=== PATIENT | female | born 1980 | race Two or more races ===

== ENCOUNTER 2018-12-25 14:08 | Emergency (ER) | payer OTHER ==
[~2018-12-25] VITALS: Ht 172.7 cm; Wt 68.0 kg
--- NOTE | 2018-12-25 14:16 | NUR ---
CAME IN FOR SEVERE ABD PAIN, +N/V SINCE THIS MORNING, PER PT BUT NOT SURE HOW FAR A LONG IS SHE. TO ER BED 16, HOOKED TO MONITOR, CHANGED TO GOWN, AWAITING MD PAGAN.
--- NOTE | 2018-12-25 14:20 | NUR ---
LIDA MAR AT BEDSIDE
[2018-12-25] MEDS ORDERED: METOCLOPRAMIDE HCL 10 MG/2 ML VIAL ONE (14:29)
[2018-12-25] MEDS: IV NS 0.9% 1,000 ML BAG IV ONE (14:30)
[2018-12-25 14:35] LABS: BASOPHILS % (AUTO) 0.3 % (0.0-2.0); EOSINOPHILS % (AUTO) 0.2 % (0.0-6.0); HEMATOCRIT 43 % (33-45); HEMOGLOBIN 14.6 g/dL (11.5-14.8); LYMPHOCYTES # (AUTO) 1.3 /CMM (0.8-4.8); LYMPHOCYTES % (AUTO) 8.8 % (20.0-44.0); MEAN CORPUSCULAR HGB CONC 34 g/dl (31.0-36.0); MEAN CORPUSCULAR VOLUME 95 fL (82-100); MONOCYTES # (AUTO) 0.5 /CMM (0.1-1.30); MONOCYTES % (AUTO) 3.4 % (2.0-12.0); NEUTROPHILS # (AUTO) 12.6 /CMM (1.8-8.9); NEUTROPHILS % (AUTO) 87.3 % (43.0-81.0); PLATELET COUNT (AUTO) 264 /CMM (150-450); RED BLOOD CELL COUNT(AUTO) 4.54 MIL/uL (4.0-5.2); WHITE BLOOD COUNT (AUTO) 14.4 K/uL (4.3-11.0)
[2018-12-25 14:42] LABS: CALCIUM, SERUM 9.4 mg/dL (8.5-10.1); CREATININE 0.9 mg/dL (0.6-1.3); POTASSIUM 4.2 mmol/L (3.5-5.1)
[2018-12-25] MEDS: METOCLOPRAMIDE HCL 10 MG/2 ML VIAL IV ONE (14:45)
[2018-12-25 14:48] LABS: ALBUMIN 4.6 g/dL (3.4-5.0); BILIRUBIN,DIRECT 0.2 mg/dL (0.0-0.2); BILIRUBIN,TOTAL 0.8 mg/dL (0.2-1.0); TOTAL PROTEIN, SERUM 7.9 g/dL (6.4-8.2)
[2018-12-25] MEDS ORDERED: diphenhydrAMINE HCL 50 MG/ML VIAL ONE (15:16)
[2018-12-25] MEDS: diphenhydrAMINE HCL 50 MG/ML VIAL IV ONE (15:29)
[2018-12-25] MEDS ORDERED: FAMOTIDINE/PF INJ 20 MG/2 ML VIAL IV ONE (16:15)
[2018-12-25] MEDS ORDERED: ONDANSETRON HCL/PF 4 MG/2 ML VIAL ONE (16:15)
[2018-12-25] MEDS: IV NS 0.9% 500 ML BAG IV ONE (16:25)
[2018-12-25] MEDS: ONDANSETRON HCL/PF - ER 4 MG/2 ML VIAL IV ONE (16:25)
[2018-12-25] MEDS: FAMOTIDINE/PF INJ 20 MG/2 ML VIAL IV ONE (16:25)
--- NOTE | 2018-12-25 17:15 | NUR ---
ASSUMED CARE REPORT GIVEN BY DENIA RN
[2018-12-25] MEDS ORDERED: ACETAMINOPHEN 650 MG/20.3 ML UDC ONE (17:26)
[2018-12-25] MEDS: ACETAMINOPHEN 650 MG/20.3 ML UDC PO ONE (17:33)
--- NOTE | 2018-12-25 17:45 | NUR ---
PATIENT DC HOME INSTRUCTION GIVEN AGREES TO CALL PMD IN 2 DAYS VERBALIZED UNDERSTANDING ASSISTED TO WC ,VITALS TAKEN AND FILED NOTED NO NAUSEA AND VOMITING @ THIS TIME
[2018-12-25 18:22] VITALS: BP 120/67
== END 2018-12-25 18:22 | disposition home or self-care (01) ==
LOC: ER 14:08
DX: O21.8 Other vomiting complicating pregnancy (principal); O26.91 Pregnancy related conditions, unspecified, first trimester; R10.84 Generalized abdominal pain; Z3A.01 Less than 8 weeks gestation of pregnancy
CPT/HCPCS: 36415; 76705; 80048; 80076; 83690; 84702; 85025; 96361; 96374; 96375; 99284; J1200; J2405; J2765; J3490; J7030; J7040